=== PATIENT | male | born 1975 | race Caucasian/White ===

== ENCOUNTER 2017-01-15 11:47 | Emergency (ER) | payer OTHER ==
[2017-01-15 12:23] VITALS: BP 129/81
--- NOTE | 2017-01-15 12:39 | RAD ---
INDICATION: Pain loss of range of motion left wrist. TECHNIQUE: 3 views of the left wrist were obtained. FINDINGS: There is mild soft tissue swelling posterior to the carpal bones. The bones are in normal alignment. Joint spaces appear maintained. No fracture is seen. IMPRESSION: SOFT TISSUE SWELLING NO FOCAL OSSEOUS ABNORMALITY IS SEEN.
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
== END 2017-01-15 13:09 | disposition home or self-care (01) ==
LOC: UCEAST 11:47
DX: M67.432 Ganglion, left wrist (principal); Z88.0 Allergy status to penicillin; Z87.891 Personal history of nicotine dependence
CPT/HCPCS: 99212; G0463

== ENCOUNTER 2017-05-01 14:30 | Emergency (ER) | payer OTHER ==
[2017-05-01 14:39] VITALS: BP 123/84
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
== END 2017-05-01 14:58 | disposition home or self-care (01) ==
LOC: UCEAST 14:30
DX: H93.8X2 Other specified disorders of left ear (principal); L53.9 Erythematous condition, unspecified; Z87.891 Personal history of nicotine dependence
CPT/HCPCS: 99212; G0463

== ENCOUNTER 2017-05-04 16:35 | Emergency (ER) | payer OTHER ==
[2017-05-04] MEDS ORDERED: Acetaminophen TAB* 325 MG PO ONE (17:18)
[2017-05-04] MEDS ORDERED: NS 0.9% 1000 ML* 1,000 ML IV ONE (17:24)
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
[2017-05-04 17:43] VITALS: BP 133/88
== END 2017-05-04 17:59 | disposition short-term general hospital (02) ==
LOC: UCEAST 16:35
DX: S01.511A Laceration without foreign body of lip, initial encounter (principal); S20.219A Contusion of unspecified front wall of thorax, initial encounter; Y04.0XXA Assault by unarmed brawl or fight, initial encounter; Y93.9 Activity, unspecified; Y92.9 Unspecified place or not applicable; Y99.9 Unspecified external cause status; F50.9 Eating disorder, unspecified; Z72.0 Tobacco use; F11.10 Opioid abuse, uncomplicated
CPT/HCPCS: 99214; A9270-GY; G0463

== ENCOUNTER 2017-05-04 18:20 | Emergency (ER) | payer OTHER ==
[2017-05-04] MEDS ORDERED: Buprenorphine/Naloxone 8-2 MG SL TAB* 1 TAB PO ONE (18:57)
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
[2017-05-04] MEDS ORDERED: Tetan/Diph/Pertus SYR(Tdap)* 0.5 ML SYR(BOOSTRIX) use SYR IM ONE (19:39)
[2017-05-04 19:52] LABS: Hematocrit 40 % (42-52); Hemoglobin 13.8 g/dl (14.0-18.0); Mean Corpuscular HGB Conc 34 g/dl (31-36); Mean Corpuscular Hemoglobin 30 pg (27-31); Mean Corpuscular Volume 89 fL (80-94); Mean Platelet Volume 7 um3 (7.4-10.4); Red Blood Count 4.54 10^6/ul (4.0-5.4); Red Cell Distribution Width 14 % (10.5-15); White Blood Count 10.4 10^3/ul (3.5-10.8)
[2017-05-04 19:57] LABS: Comments Flag Yes
[2017-05-04 19:58] LABS: Add Diff/Slide Review? Slide Review Added
[2017-05-04 20:06] LABS: Albumin 4.1 g/dL (3.2-5.2); BUN/Creatinine Ratio 13.1 (8-20); Calcium 9.3 mg/dL (8.6-10.3); EGFR African American 106.6 (>60); EGFR Non-African American 82.9 (>60); Globulin 3.1 g/dL (2-4); Potassium 4.2 mmol/L (3.5-5.0); Total Bilirubin 0.9 mg/dL (0.2-1.0); Total Protein 7.2 g/dL (6.4-8.9)
--- NOTE | 2017-05-04 20:07 | RAD ---
INDICATION: Intracranial injury COMPARISON: CT brain October 09, 2010 TECHNIQUE: Noncontrast axial source images were acquired from the skull base to the vertex. FINDINGS: Ventricles/sulci: The ventricles and cisterns are normal in size and configuration for age. Brain parenchyma: There is no focal parenchymal finding, evidence of intracranial mass, or intracranial mass effect. Intracranial hemorrhage:None. Extra-axial spaces: There are no abnormal extra axial fluid collections or evidence of extra-axial mass. Calvarium: There is no calvarial fracture or other calvarial abnormality. There are facial bone fractures described in a separate report. Scalp: There is no evidence of scalp or extracalvarial soft tissue abnormality. Paranasal sinuses/mastoid: There are air-fluid levels in both maxillary antra. The paranasal sinuses and mastoid air cells are clear. Other: None. IMPRESSION: No acute intracranial findings. Bilateral maxillary antral air-fluid levels. Facial bone fractures (refer to separate maxillary facial CT report)
[2017-05-04] MEDS ORDERED: Iohexol 300* (CONTRAST) 10 ML SDV IV ONE (20:09)
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
[2017-05-04 20:38] LABS: Immature Granulocytes 4 % (0-9); Neutrophil % 74 % (38-83); RBC Morphology Normal (Normal); Reactive Lymph % 5 % (0-6)
[2017-05-04] MEDS ORDERED: Clindamycin CAP* 150 MG PO ONE (20:44)
[2017-05-04] MEDS ORDERED: Gabapentin CAP(*) 300 MG PO ONE (20:45)
[2017-05-04] MEDS ORDERED: Lidocaine 1%* 5 ML VIAL INJ ONE (20:47)
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
[2017-05-04 22:00] VITALS: BP 130/86
== END 2017-05-04 22:05 | disposition home or self-care (01) ==
LOC: ED 18:20
DX: S01.511A Laceration without foreign body of lip, initial encounter (principal); S02.40DA Maxillary fracture, left side, initial encounter for closed fracture; S02.31XA Fracture of orbital floor, right side, initial encounter for closed fracture; S09.90XA Unspecified injury of head, initial encounter; S20.20XA Contusion of thorax, unspecified, initial encounter; S00.81XA Abrasion of other part of head, initial encounter; Y04.2XXA Assault by strike against or bumped into by another person, initial encounter; Y93.9 Activity, unspecified; Y92.9 Unspecified place or not applicable; Z23 Encounter for immunization; H11.32 Conjunctival hemorrhage, left eye; R91.8 Other nonspecific abnormal finding of lung field; F41.9 Anxiety disorder, unspecified; F32.9 Major depressive disorder, single episode, unspecified; Z88.0 Allergy status to penicillin; F17.220 Nicotine dependence, chewing tobacco, uncomplicated
CPT/HCPCS: 12011; 36415; 70450; 70486; 71260; 72125; 74177; 80053; 85025; 90471; 90715; 99283; A9270-GY; Q9967

== ENCOUNTER 2017-10-28 09:14 | Emergency (ER) | payer OTHER ==
[2017-10-28] MEDS ORDERED: Sucralfate TAB* 1 GM PO ONE (10:05)
[2017-10-28 11:48] VITALS: BP 129/91
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
== END 2017-10-28 11:48 | disposition home or self-care (01) ==
LOC: ED 09:14
DX: K20.9 Esophagitis, unspecified (principal); R13.10 Dysphagia, unspecified; R10.13 Epigastric pain; Z87.891 Personal history of nicotine dependence
CPT/HCPCS: 99283; A9270-GY

== ENCOUNTER 2018-09-01 10:47 | Emergency (ER) | payer OTHER ==
[2018-09-01 12:08] VITALS: BP 147/104
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
[2018-09-01] MEDS ORDERED: Ketorolac INJ* 60 MG/2 ML VIAL IM ONE (12:20)
[2018-09-01] MEDS ORDERED: Ondansetron ODT TAB* 4 MG SL ONE (12:20)
[2018-09-01 15:52] LABS: ABS Basophils 0.1 10^3/ul (0-0.2); ABS Eosinophils 0.1 10^3/ul (0-0.6); ABS Monocytes 0.9 10^3/ul (0-0.8); ABS Neutrophils 4.4 10^3/ul (1.5-7.7); ABS Nucleated RBC 0 10^3/ul; Eosinophil % 1.5 %; Hematocrit 47 % (36-46); Hemoglobin 16.1 g/dL (14.0-18.0); Lymphocyte % 26.4 %; Mean Corpuscular HGB Conc 35 g/dL (31-36); Mean Corpuscular Hemoglobin 32 pg (27-31); Mean Corpuscular Volume 92 fL (80-94); Mean Platelet Volume 7.7 fL (7.4-10.4); Nucleated Red Blood Cells % 0.3; Platelet Count 286 10^3/uL (150-450); Red Blood Count 5.06 10^6 /uL (4.18-5.48); Red Cell Distribution Width 14 % (10.5-15); White Blood Count 7.4 10^3/uL (3.5-10.8)
[2018-09-01 15:57] LABS: Albumin 4.7 g/dL (3.2-5.2); Calcium 9.8 mg/dL (8.6-10.3); Total Bilirubin 1.5 mg/dL (0.2-1.0)
[2018-09-01 16:03] LABS: Albumin/Globulin Ratio 1.3 (1-3); BUN/Creatinine Ratio 14.4 (8-20); EGFR African American 110.9 (>60); EGFR Non-African American 91.7 (>60); Globulin 3.7 g/dL (2-4); Total Protein 8.4 g/dL (6.4-8.9)
--- NOTE | 2018-09-02 07:46 | UC ---
- Progress Note Progress Note: Lab work comes back from September 01, 2018. Liver functions come back slightly elevated with total bilirubin of 1.5, Alkaline phosphate 118, ALT 96, AST 61. Blood sugar slightly elevated at 109. Nursing to call patient and let him know about the results and have him follow- up his primary care physician for further evaluation. While these lab values are slightly elevated they're not critical that they should get reevaluated by the primary care physician within a week. Course/Dx - Diagnoses Provider Diagnoses: Headache Discharge - Sign-Out/Discharge Documenting (check all that apply): Patient Departure All imaging exams completed and their final reports reviewed: No Studies - Discharge Plan Condition: Stable Disposition: HOME Patient Education Materials: Acute Headache (DC) Referrals: Tay Melo MD [Primary Care Provider] - Additional Instructions: Your blood pressure was high at todays visit. Please see your primary provider within 4 weeks for recheck and re-evaluation. If your symptoms worsen or do not improve - please go to the ER - Billing Disposition and Condition Condition: STABLE Disposition: Home
== END 2018-09-01 12:48 | disposition home or self-care (01) ==
LOC: UCEAST 10:47
DX: R51 Headache (principal); F41.9 Anxiety disorder, unspecified; F32.9 Major depressive disorder, single episode, unspecified; Z88.0 Allergy status to penicillin; Z87.891 Personal history of nicotine dependence
CPT/HCPCS: 36415; 80053; 85025; 99212; A9270-GY; G0463; J1885

== ENCOUNTER 2019-02-20 01:48 | Emergency (ER) | payer OTHER ==
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
[2019-02-20 03:04] VITALS: BP 129/105
== END 2019-02-20 03:19 | disposition home or self-care (01) ==
LOC: ED 01:48
DX: F10.929 Alcohol use, unspecified with intoxication, unspecified (principal); I10 Essential (primary) hypertension; F41.9 Anxiety disorder, unspecified; F32.9 Major depressive disorder, single episode, unspecified; Z87.891 Personal history of nicotine dependence; Z88.0 Allergy status to penicillin
CPT/HCPCS: 99285

== ENCOUNTER 2019-06-04 10:16 | Emergency (ER) | payer OTHER ==
[2019-06-04 10:26] VITALS: BP 131/90
--- NOTE | 2019-06-04 10:33 | UC ---
Dental HPI - HPI Summary HPI Summary: started 3 days ago with R jaw and R ear pain, also remembers spitting part of tooth out 2 days ago. yesterday he had swollen R jaw and pain, toothache bottom molar today swelling is better but not gone. denies toothache - History of Current Complaint Chief Complaint: UCDentalProblem Stated Complaint: DENTAL PAIN Time Seen by Provider: 06/04/19 10:26 Hx Obtained From: Patient, Family/Medical Services Coordinator Onset/Duration: Gradual Onset Pain Intensity: 0 Related History: Previous Dental Care on Same Tooth, Swelling - Allergies/Home Medications Allergies/Adverse Reactions: Allergies Allergy/AdvReac Type Severity Reaction Status Date / Time Penicillins Allergy Unknown Verified 06/04/19 10:26 Reaction Details Home Medications: Home Medications amLODIPine TAB* [Norvasc 5 mg TAB*] 1 tab PO DAILY 06/04/19 [History Confirmed 06/04/19] PMH/Surg Hx/FS Hx/Imm Hx Previously Healthy: Yes Cardiovascular History: Hypertension Psychological History: Anxiety, Depression, Other - drug abuse Other History Of: Hepatitis C - treated, no longer active infection Negative For: HIV, Hepatitis B - Surgical History Surgical History: Yes Surgery Procedure, Year, and Place: Lt SHOULDER - 3 xS DUE TO DISLOCATION. RIVER CARPAL TUNNEL. Rt THUMB - TENDoNITIS. EAR TUBES CHILD - Family History Known Family History: Positive: Cardiac Disease Negative: Hypertension, Diabetes - Social History Occupation: Unemployed Lives: With Family Alcohol Use: None Alcohol Amount: recovering etoh Substance Use Type: Prescribed Substance Use Comment - Amount & Last Used: Last use, Mar 23 2015, suboxone Smoking Status (MU): Former Smoker Type: Smokeless Tobacco Amount Used/How Often: 1.75 can/week Have You Smoked in the Last Year: Yes When Did the Patient Quit Smoking/Using Tobacco: chews - Immunization History Most Recent Influenza Vaccination: Most Recent Tetanus Shot: less then 10 days Review of Systems All Other Systems Reviewed And Are Negative: Yes Constitutional: Positive: Negative. Negative: Fever, Chills ENT: Positive: Dental Pain Respiratory: Positive: Negative Cardiovascular: Positive: Negative Neurological: Positive: Negative. Negative: Headache Psychological: Positive: Negative Is Patient Immunocompromised?: No Physical Exam Triage Information Reviewed: Yes Appearance: Well-Appearing, No Pain Distress, Well-Nourished Vital Signs: Initial Vital Signs Temp 97 F 06/04/19 10:22 Pulse 98 06/04/19 10:22 Resp 17 06/04/19 10:22 BP 131/90 06/04/19 10:22 Pulse Ox 100 06/04/19 10:22 Vital Signs Reviewed: Yes ENT: Positive: Dental tenderness - R lower molar x 2 teeth (dental fractures noted), Other - slightly swollen R lower jaw Dental: Positive: Gross Decay/Caries @. Negative: Cervical Lymphadenopathy Neck exam: Normal Respiratory Exam: Normal Respiratory: Positive: Lungs clear Cardiovascular Exam: Normal Neurological Exam: Normal Psychological Exam: Normal Skin Exam: Normal Dental Complaint Course/Dx - Course Course Of Treatment: iStop Reference #: [id number] - Differential Dx/Diagnosis Differential Diagnosis/Dx: Dental Abscess, Dental Caries, Fractured Tooth, TMJ Syndrome Provider Diagnosis: Dental abscess Discharge ED - Sign-Out/Discharge Documenting (check all that apply): Patient Departure All imaging exams completed and their final reports reviewed: No Studies - Discharge Plan Condition: Good Disposition: HOME Prescriptions: Clindamycin HCl 150 mg PO QID #28 capsule Ibuprofen TAB* [Motrin TAB* 800 MG] 800 mg PO Q6H PRN #30 tab PRN Reason: Pain - Moderate Patient Education Materials: Dental Abscess (ED) Referrals: No Primary Care Phys,NOPCP [Primary Care Provider] - Additional Instructions: take antibiotic as directed ibuprofen as directed for pain (take with food) follow-up with you r dentist as soon as possible - Billing Disposition and Condition Condition: GOOD Disposition: Home - Attestation Statements Provider Attestation: This patient was not seen by me. I was available for consult. Chart reviewed. VLAD
== END 2019-06-04 10:50 | disposition home or self-care (01) ==
LOC: UCEAST 10:16
DX: K04.7 Periapical abscess without sinus (principal); I10 Essential (primary) hypertension; Z88.0 Allergy status to penicillin; Z79.899 Other long term (current) drug therapy; Z87.891 Personal history of nicotine dependence
CPT/HCPCS: 99212; G0463